=== PATIENT | female | born 1995 | race Caucasian/White ===

== ENCOUNTER 2018-03-19 07:48 | Day surgery (SDC) | payer BC ==
[~2018-03-19] VITALS: Ht 152.4 cm; Wt 61.2 kg
[2018-03-19 08:00] VITALS: BP 128/83
[2018-03-19] MEDS: LACTATED RINGERS 1,000 ML IV PRN ×2 (08:15→09:48)
[2018-03-19] MEDS ORDERED: ceFAZolin 2 GM IV Premixed 50 ML ONE (08:26)
[2018-03-19] MEDS ORDERED: ONDANSETRON 4 MG/2 ML (SDV) Z0FRAN ONE (08:36)
[2018-03-19] MEDS ORDERED: fentaNYL INJECTION 100 MCG/2 ML AMP ONE (08:36)
[2018-03-19] MEDS ORDERED: proPOfol 200 MG/20 ML (DIPRIVAN) VIAL IV ONE ×2 (08:36→10:18)
[2018-03-19] MEDS ORDERED: DEXAMETHASONE 10 MG/ML (DECADRON) 1 ML VIAL ONE (08:36)
[2018-03-19] MEDS ORDERED: LIDOCAINE PF 2% 5 ML (XYLOCAINE) VIAL ONE (08:36)
[2018-03-19] MEDS ORDERED: MIDAZOLAM 2 MG/2 ML (VERSED) VIAL ONE (08:36)
[2018-03-19] MEDS ORDERED: BUPIVACAINE 0.5% 30 ML (SENSORCAINE) VIAL ONE (08:37)
[2018-03-19] MEDS ORDERED: SEVOFLURANE (ULTANE) 15 ML INHAL SOLN ONE ×3 (08:43→10:17)
--- NOTE | 2018-03-19 08:45 | Progress Note-Pre Operative ---
Pre-Operative Progress Note H&P Reviewed The H&P was reviewed, patient examined and no changes noted. Date Seen by Provider: Mar 19, 2018 Time Seen by Provider: 08:35 Date H&P Reviewed: Mar 19, 2018 Time H&P Reviewed: 08:35 Pre-Operative Diagnosis: Left Ankle Fracture GABRIELLE RUSHING DPM Mar 19, 2018 08:45
[2018-03-19] MEDS ORDERED: LACTATED RINGERS 1,000 ML IV ONE (09:39)
--- NOTE | 2018-03-19 10:29 | Discharge Inst-Surgical ---
Discharge Inst-Surgical Consults/Follow Up Patient Instructions: KEEP DRESSING CLEAN, DRY, AND INTACT. DO NOT REMOVE THE SPLINT, DO NOT GET THE SPLINT WET OR SOILED. REMAIN NONWEIGHT BEARING TO THE LEFT LEG WITH USE OF CRUTCHES OR WALKER. CALL DR RUSHING'S OFFICE FOR FOLLOW UP IN 2 WEEKS, CALL [phone] GABRIELLE RUSHING DPM Mar 19, 2018 10:29
[2018-03-19] MEDS ORDERED: OXYC1TAB12 PO (10:30)
[2018-03-19] MEDS ORDERED: morphine INJ 10 MG/ML 1ML (SYR OR VIAL) ONE (10:33)
[2018-03-19] MEDS ORDERED: MEPERIDINE (DEMEROL) INJ 50 MG/ML ONE (10:38)
[2018-03-19] MEDS ORDERED: ONDANSETRON 4 MG/2 ML (SDV) Z0FRAN IVP PRN (10:45)
[2018-03-19] MEDS ORDERED: morphine INJ 10 MG/ML 1ML (SYR OR VIAL) IVP ONE (10:45)
[2018-03-19] MEDS ORDERED: MEPERIDINE (DEMEROL) INJ 50 MG/ML IVP ONE (10:45)
[2018-03-19 11:25] VITALS: BP 133/100
[2018-03-19] MEDS ORDERED: oxyCODONE/APAP 10/325MG (PERCOCET 10) TABLET PO ONE (11:30)
[2018-03-19] MEDS ORDERED: ceFAZolin 2 GM/50 ML PRE-MIX IVPB IV ONE (11:30)
[2018-03-19 11:55] VITALS: BP 125/96
--- NOTE | 2018-03-19 12:15 | Diagnostic Imaging Report ---
CLINICAL INDICATION: Open reduction internal fixation of left distal fibula. EXAM: Two limited intraoperative spot x-ray images of the left ankle. COMPARISON: None. FINDINGS AND IMPRESSION: Open reduction and internal fixation of the ankle region is seen with sideplate and screws internally fixing the distal fibula and syndesmotic screw seen. Ankle mortise and syndesmotic joint appears anatomically aligned. Please see surgeon's report for more detail. Fluoroscopy was provided for surgeons and a total of 49.5 seconds and 159.59 mGy was provided. Dictated by: Dictated on workstation # [id number]
[2018-03-19 12:25] VITALS: BP 119/84
--- NOTE | 2018-03-19 12:30 | Anesthesia-General Post-Op ---
General Patient Condition Mental Status/LOC: Same as Preop Cardiovascular: Satisfactory Nausea/Vomiting: Absent Respiratory: Satisfactory Pain: Controlled Complications: Absent Post Op Complications Complications None Follow Up Care/Instructions Patient Instructions None needed. Anesthesia/Patient Condition Patient Condition Patient was seen after the surgery and she was doing well, no complaints, stable vital signs, no apparent adverse anesthesia problems. LISETTE HINOJOSA DO Mar 19, 2018 12:30
[2018-03-19 12:55] VITALS: BP 119/84
--- NOTE | 2018-04-06 22:35 | OPERATIVE REPORT ---
DATE OF SERVICE: 03/19/2018 SURGEON: Aaron Rushing DPM LAUNDROMAT MANAGER: None. PREOPERATIVE DIAGNOSIS: Left distal fibular fracture with syndesmotic instability. POSTOPERATIVE DIAGNOSIS: Left distal fibular fracture with syndesmotic instability. PROCEDURE PERFORMED: Open reduction and internal fixation of left distal fibular fracture with syndesmotic stabilization. ANESTHESIA: General anesthesia. HEMOSTASIS: Pneumatic thigh tourniquet at 300 mmHg. ESTIMATED BLOOD LOSS: Minimal. MATERIALS USED: Synthes plates and screws, 3-0 Vicryl, 3-0 nylon. INTRAOPERATIVE INJECTABLES: 20 mL 0.5% Marcaine plain. COMPLICATIONS: None. INDICATIONS FOR THE PROCEDURE: The patient is a 22-year-old female who suffered an ankle fracture to her left lower extremity. At this time, she is requiring surgical intervention. She has signed consent prior to being taken back to the OR. DESCRIPTION OF PROCEDURE: Under mild sedation, the patient was brought in the OR and placed on the operating table in supine position. Following administration of general anesthesia, pneumatic thigh tourniquet was placed on the left lower extremity. Left lower extremity was scrubbed, prepped and draped in an aseptic manner and proper timeout was performed. The left lower extremity was identified as surgical site. Next, approximately 6 cm incision was made to the distal aspect of the left fibula. The incision was deepened down to subcutaneous tissues with care being taken to avoid damage to vascular structures. All bleeders were cauterized and ligated as necessary. The incision was deepened down to the level of the fracture site. Correct site was identified and debrided of all hematogenous debris. The fracture was then reduced and temporally fixated with fracture clamps. An interfragmentary screws placed across the fracture and there was excellent compression across the distal fibula. Next, a lateral plate was then fixated with combination of locking and nonlocking screws. Once there was stable rigid internal fixation, fluoroscopic views were taken and adequate reduction of the fracture site was noted. A stressed abductory external rotation test was performed of the ankle and it was noted there was increased medial clear space as well as diastasis of the tibia fibular syndesmosis. Thus the indication for a syndesmotic stability was deemed necessary. A 3.5 mm screw was placed across the syndesmosis just approximately 1.5 cm proximal to the ankle joint. Once the screw was placed, screw was placed. Syndesmosis was manually reduced with the ankle held in a dorsiflexed position. There was adequate position of the syndesmosis noted. Again, ankle was again stressed under fluoroscopy and there was an adequate reduction that was seen. The wound was then flushed with copious amounts of sterile saline. Deep tissues approximated and closed with 3-0 Vicryl, subcutaneous tissues approximated with 3-0 Vicryl and the skin was approximated. The wound edges were well everted using 3-0 nylon. The patient tolerated the procedure and anesthesia well. A 20 mL 0.5% Marcaine plain were then injected in the foot. The foot was dressed with a dry sterile dressing consisting of 4 x 4's, cast padding and an Sudhir wrap followed by posterior splint and Sudhir wrap. The patient was transferred from OR to recovery with vital signs stable. Neurovascular status intact to the left lower extremity. Job ID: [id number] DocumentID: [id number] Dictated Date: 04/06/2018 20:55:49 Photographic Specialist Date: 04/06/2018 22:35:18 Dictated By: AARON RUSHING DPM
== END 2018-03-19 12:55 | disposition home or self-care (01) ==
LOC: SDC 07:48
PROVIDERS: ATTEND Podiatrist
DX: S82.892A Other fracture of left lower leg, initial encounter for closed fracture (principal); Z11.2 Encounter for screening for other bacterial diseases; W19.XXXA Unspecified fall, initial encounter
CPT/HCPCS: 84703; 87081